=== PATIENT | male | born 1995 | race Caucasian/White ===

== ENCOUNTER 2018-05-20 07:27 | Outpatient (CLI) | payer BC ==
--- NOTE | 2018-05-20 09:59 | ULT ---
HEPATIC DOPPLER ULTRASOUND: HISTORY: Elevated liver function tests. COMPARISON: None. TECHNIQUE: Real-time goodman-scale color Doppler and spectral analysis of the liver was performed. FINDINGS: The visualized portions of the aorta, IVC, and pancreas are unremarkable. The spleen is enlarged, me asuring nearly 13 cm in length. The gallbladder is normal. The common bile duct is normal. Sonographic Izquierdo sign is negative. The hepatic echotexture is normal. Normal phasicity and directional flow. IMPRESSION: 1. Normal exam of the liver. 2. Mild splenomegaly. POS: [facility]
== END 2018-05-20 07:28 | disposition home or self-care (01) ==
LOC: BICULT 07:27
PROVIDERS: ATTEND Internal Medicine
DX: R94.5 Abnormal results of liver function studies (principal); R16.1 Splenomegaly, not elsewhere classified
CPT/HCPCS: 76705